=== PATIENT | female | born 1940 | race Caucasian/White ===

== ENCOUNTER 2020-09-23 11:14 | Outpatient (CLI) | payer MEDICARE | END 2020-09-23 11:15 | disposition home or self-care (01) | LOC: SCSRAD 11:14 | PROVIDERS: ATTEND Family Medicine | DX: M25.562 Pain in left knee (principal); M16.12 Unilateral primary osteoarthritis, left hip ==

== ENCOUNTER 2022-06-19 14:50 | Outpatient (CLI) | payer MEDICARE | END 2022-06-19 14:51 | disposition home or self-care (01) | LOC: SCSRAD 14:50 | PROVIDERS: ATTEND Family Medicine | DX: M25.562 Pain in left knee (principal) ==

== ENCOUNTER 2022-09-03 15:57 | Outpatient (CLI) | payer MEDICARE | END 2022-09-03 15:58 | disposition home or self-care (01) | LOC: SCSRAD 15:57 | PROVIDERS: ATTEND Internal Medicine Rheumatology | DX: M54.50 Low back pain, unspecified (principal); M47.816 Spondylosis without myelopathy or radiculopathy, lumbar region | CPT/HCPCS: 72100 ==